=== PATIENT | female | born 1985 | race Hispanic/Latino ===

== ENCOUNTER 2019-06-18 13:11 | Emergency (ER) | payer MEDICAID, SELFPAY ==
[2019-06-18] MEDS ORDERED: Acetaminophen 500 MG TAB ONE (13:51)
[2019-06-18 14:32] LABS: #Eosinphils 0.1 thou/uL (0.0-0.7); #Lymphocytes 1.4 thou/uL (1.20-3.40); #Monocytes 0.4 thou/uL (0.11-0.59); #Neutrophils 3.3 thou/uL (1.40-6.50); %Basophils 0.3 % (0.0-1.0); %Eosinophils 2.1 % (0.0-10.0); %Monocytes 7.1 % (0.0-10.0); %Neutrophils 63.5 % (42.0-75.0); Hemoglobin 12.9 g/dL (12.0-16.0); Mean Corpuscular HGB CONC 33.9 g/dL (32.0-36.0); Mean Corpuscular Hemoglobin 30.7 pg (27.0-31.0); Mean Corpuscular Volume 90.4 fL (78.0-98.0); Mean Platelet Volume 8.3 fL (7.4-10.4); Platelet Count 206 thou/uL (130-400); Red Blood Cell (RBC) Count 4.21 mill/uL (4.20-5.40); White Blood Cell (WBC) Count 5.1 thou/uL (4.8-10.8)
--- NOTE | 2019-06-18 15:03 | ULT ---
Exam: Transabdominal and endovaginal pelvic ultrasound HISTORY:Positive test. Bleeding. COMPARISON: None TECHNIQUE: Transabdominal and endovaginal imaging of the pelvis is performed. Ovaries are interrogate d with grayscale, color flow, Doppler imaging and spectral wave form analysis FINDINGS: Uterus: No myometrial masses. Uterus measurin.9 x 10.3 x 7.1 cm. Endometrium: Within the endometrium, there is a gestational sac, yolk sac and pole. Ceres-rump length is 0.45 cm corresponding to gestational age of 6 weeks 1 day. No subchorionic hemorrhage heart tones: 116 bpm . Incidental nabothian cyst Free fluid: None Right ovary: Normal echotexture. 1.1 x 0.9 x 0.9 cm hypoechoic focus may represent a complex cyst lloyd lori an involuting corpus luteal cyst. Right ovary measurement: 3.5 x 2.4 x 2.4 cm Left ovary: Normal echotexture Left ovary measurements: 1.7 x 1.6 x 2.2 cm Ovarian Doppler: There is vascular flow to the left and right ovary. IMPRESSION: Single intrauterine gestation with heart tones. Gestational age by crown-rump lengt h is 6 weeks and 1 day.
[2019-06-18 15:25] LABS: Bacteria/HPF None Seen HPF (None Seen); Bilirubin Negative (Negative); Blood, Urine 2+ (Negative); Clarity Clear (Clear); Glucose, Urine (Dipstick) Normal (Negative); Leukocyte Negative Leu/uL (Negative); Nitrite Negative (Negative); Protein, Urine (Dipstick) Negative (Neg-Trace); RBC/HPF 0-3 HPF (0-3); Urobilinogen Normal mg/dL (Less than 2); WBC/HPF 0-3 HPF (0-3)
[2019-06-20 00:36] LABS: Chlamydia by PCR Not Detected (NotDetected); GC by PCR Not Detected (NotDetected)
== END 2019-06-18 15:55 | disposition home or self-care (01) ==
LOC: ERS 13:11
DX: O20.0 Threatened abortion (principal); Z3A.01 Less than 8 weeks gestation of pregnancy
CPT/HCPCS: 36415; 76856; 81003; 81015; 84702; 85025; 86900; 86901; 87480; 87491; 87510; 87591; 87660

== ENCOUNTER 2019-11-02 07:57 | Outpatient (CLI) | payer OTHER ==
--- NOTE | 2019-11-03 09:02 | ULT ---
OB ULTRASOUND: COMPARISON: 09/21/2019. HISTORY: Prominent left and right renal pelvis. TECHNIQUE: Sagittal and transverse imaging of the gravid uterus is performed. FINDINGS: Single intrauterine gestation, breech presentation. Cervical length is 4.60 cm. heart tones: 143 bpm. Posterior placenta. No previa. biometry: BPD 6.18 cm, 25 weeks 1 day Head circumference 22.77 cm, 24 weeks 6 days Abdominal circumference 20.58 cm, 25 weeks 2 days Femur length 4.41 cm, 24 weeks 4 days Average age by sonography is 25 weeks 0 days. Estimated weight is 746 g. survey: The following structures are visualized and are appropriate: 3-vessel cord, cord insertion, 4-chamber heart, feet, bladder, nose and lips. There is persistent dilatation of the left and right renal pelvis demonstrated on both the short axis and longitudinal dimension. Right renal pelvis measures 0. 5 cm. Left renal pelvis measures 1.1 cm. Amniotic fluid index 17.5. IMPRESSION: 1. Single intrauterine gestation with heart tones. Gestational age by sonography is 25 weeks 0 days. 2. Cervical length appears to be 4.6 cm. 3. Amniotic fluid index is 17.5 cm. 4. Persistent dilatation of the left right renal pelvis. Continued surveillance as warranted. Transcribed Date/Time: 11/03/2019 9:24 AM
== END 2019-11-02 07:58 | disposition home or self-care (01) ==
LOC: BICULT 07:57
PROVIDERS: ATTEND Family Medicine
DX: O09.892 Supervision of other high risk pregnancies, second trimester (principal); Z3A.25 25 weeks gestation of pregnancy
CPT/HCPCS: 76816

== ENCOUNTER 2021-05-05 23:12 | Inpatient (IN) | payer SELFPAY ==
[~2021-05-05 23:12] MED LIST: Iopamidol-370 76% 500 ML 1 ML ONE
[2021-05-05 23:56] LABS: #Basophils 0.1 thou/uL (0.0-0.2); #Eosinphils 0.1 thou/uL (0.0-0.7); #Lymphocytes 0.9 thou/uL (1.20-3.40); #Monocytes 0.3 thou/uL (0.11-0.59); #Neutrophils 1.7 thou/uL (1.40-6.50); %Basophils 1.7 % (0.0-1.0); %Lymphocytes 30.5 % (21.0-51.0); %Monocytes 8.8 % (0.0-10.0); Hemoglobin 13.2 g/dL (12.0-16.0); Mean Corpuscular HGB CONC 34.5 g/dL (32.0-36.0); Mean Corpuscular Hemoglobin 31.5 pg (27.0-31.0); Mean Corpuscular Volume 91.4 fL (78.0-98.0); Mean Platelet Volume 7.6 fL (7.4-10.4); Platelet Count 302 thou/uL (130-400); RBC Distribution Width 11.9 % (11.5-14.5); Red Blood Cell (RBC) Count 4.19 mill/uL (4.20-5.40)
[2021-05-06 00:03] LABS: BHCG - Serum Negative (NEGATIVE); Pregs Control Background? CLEAR/WHITE (CLR/WHITE); Pregs Control Bar Appear? YES (CONTROL BAR)
[2021-05-06] MEDS ORDERED: Dexamethasone 10 MG/ML VIAL ONE (00:10)
[2021-05-06 00:18] LABS: ALT (SGPT) 56 U/L (8-55); AST (SGOT) 45 U/L (5-34); Albumin 3.5 g/dL (3.5-5.0); Alkaline Phosphatase 75 U/L (40-110); Anion Gap 14 mmol/L (10-20); BUN (Urea Nitrogen) 5 mg/dL (7.0-18.7); Bilirubin, Total 0.3 mg/dL (0.2-1.2); Calc. Creatinine Clearance 0 mL/min (70-130); Calcium 8.4 mg/dL (7.8-10.44); Carbon Dioxide 24 mmol/L (22-29); Chloride 108 mmol/L (98-107); Globulin 3.3 g/dL (2.4-3.5); Glucose 125 mg/dL (70-105); Potassium 4.3 mmol/L (3.5-5.1); Protein, Total 6.8 g/dL (6.0-8.3); Sodium 142 mmol/L (136-145)
[2021-05-06 05:31] VITALS: BMI 30.7
[2021-05-06] MEDS ORDERED: HYDROcodone/Acetaminophen 7.5/325 mg Tablet PO PRN (05:55)
[2021-05-06] MEDS ORDERED: Benzonatate 100 MG CAP PO PRN (05:57)
[2021-05-06] MEDS ORDERED: hydrALAZINE 20 MG/ML VIAL SLOW IVP PRN (05:57)
[2021-05-06] MEDS ORDERED: guaiFENesin ER 600 MG TAB PO SCH (06:15)
[2021-05-06] MEDS: Famotidine 20 MG TAB PO SCH ×2 (08:14→19:56)
[2021-05-06] MEDS: Zinc Sulfate 220 MG CAP PO SCH (08:14)
[2021-05-06] MEDS: Dexamethasone 10 MG in Sodium Chloride 0.9% 50 ML IVPB SCH (08:21)
[2021-05-06] MEDS ORDERED: Senokot S 8.6-50 MG TAB PO PRN (08:40)
[2021-05-06] MEDS ORDERED: Albuterol 200 PUFF (6.7GM INHALER) INH PRN (08:49)
[2021-05-06] MEDS: Ascorbic Acid 500 mg Chewable Tablet PO SCH (09:13)
[2021-05-06] MEDS: Cholecalciferol 1,000 UNITS (25 MCG) TAB PO SCH (09:14)
[2021-05-06] MEDS: Multivit, Therapeutic 1 TAB PO SCH (09:14)
[2021-05-06] MEDS: Enoxaparin Sodium 40 MG/0.4 ML SYRINGE SC SCH (10:13)
[2021-05-06] MEDS: Albuterol 200 PUFF (6.7GM INHALER) INH SCH ×4 (10:18→19:56)
[2021-05-06] MEDS ORDERED: REMDESIVIR 200 MG in Sodium Chloride 0.9% 250 ML 210 ML IV SCH (11:00)
[2021-05-06] MEDS: guaiFENesin ER 600 MG TAB PO SCH (19:57)
[2021-05-06] MEDS: Acetaminophen 325 MG TAB PO PRN (20:02)
[2021-05-06] MEDS: Melatonin 3 MG TAB PO PRN (21:28)
[2021-05-07 06:31] LABS: Hemoglobin 13.2 g/dL (12.0-16.0); Mean Corpuscular HGB CONC 33.6 g/dL (32.0-36.0); Mean Corpuscular Hemoglobin 30.2 pg (27.0-31.0); Mean Corpuscular Volume 89.8 fL (78.0-98.0); Mean Platelet Volume 7.2 fL (7.4-10.4); Platelet Count 393 thou/uL (130-400); RBC Distribution Width 11.8 % (11.5-14.5); Red Blood Cell (RBC) Count 4.39 mill/uL (4.20-5.40); White Blood Cell (WBC) Count 5.8 thou/uL (4.8-10.8)
[2021-05-07] MEDS: Albuterol 200 PUFF (6.7GM INHALER) INH SCH ×4 (06:34→18:28)
[2021-05-07 06:50] LABS: ALT (SGPT) 57 U/L (8-55); AST (SGOT) 27 U/L (5-34); Albumin 3.4 g/dL (3.5-5.0); Alkaline Phosphatase 67 U/L (40-110); Anion Gap 12 mmol/L (10-20); BUN (Urea Nitrogen) 11 mg/dL (7.0-18.7); Bilirubin, Total 0.3 mg/dL (0.2-1.2); Calc. Creatinine Clearance 139 mL/min (70-130); Calcium 8.4 mg/dL (7.8-10.44); Carbon Dioxide 25 mmol/L (22-29); Chloride 106 mmol/L (98-107); Globulin 2.7 g/dL (2.4-3.5); Glucose 132 mg/dL (70-105); Magnesium 2.2 mg/dL (1.6-2.6); Potassium 4.2 mmol/L (3.5-5.1); Protein, Total 6.1 g/dL (6.0-8.3); Sodium 139 mmol/L (136-145)
[2021-05-07 06:51] LABS: Band 7 % (5-11); Lymphocytes 12 % (21-51); MDiff Complete? YES; Monocytes 4 % (0-10); Neutrophil 77 % (42-75)
[2021-05-07] MEDS: Dexamethasone 10 MG in Sodium Chloride 0.9% 50 ML IVPB SCH (08:27)
[2021-05-07] MEDS: Cholecalciferol 1,000 UNITS (25 MCG) TAB PO SCH (08:28)
[2021-05-07] MEDS: Zinc Sulfate 220 MG CAP PO SCH (08:28)
[2021-05-07] MEDS: Famotidine 20 MG TAB PO SCH ×2 (08:29→20:07)
[2021-05-07] MEDS: Ascorbic Acid 500 mg Chewable Tablet PO SCH (08:29)
[2021-05-07] MEDS: Aspirin 81 mg Enteric Coated Tablet PO SCH (08:29)
[2021-05-07] MEDS: guaiFENesin ER 600 MG TAB PO SCH ×2 (08:29→20:07)
[2021-05-07] MEDS: Multivit, Therapeutic 1 TAB PO SCH (08:29)
[2021-05-07] MEDS: Enoxaparin Sodium 40 MG/0.4 ML SYRINGE SC SCH (08:30)
[2021-05-07] MEDS: REMDESIVIR 100 MG in Sodium Chloride 0.9% 250 ML 230 ML IV SCH (09:24)
[2021-05-07] MEDS: Melatonin 3 MG TAB PO PRN (20:08)
[2021-05-07] MEDS: Acetaminophen 325 MG TAB PO PRN (20:08)
[2021-05-08] MEDS: Albuterol 200 PUFF (6.7GM INHALER) INH SCH ×4 (06:33→18:37)
[2021-05-08] MEDS: Aspirin 81 mg Enteric Coated Tablet PO SCH (08:19)
[2021-05-08] MEDS: Ascorbic Acid 500 mg Chewable Tablet PO SCH (08:19)
[2021-05-08] MEDS: Famotidine 20 MG TAB PO SCH ×2 (08:19→20:01)
[2021-05-08] MEDS: Cholecalciferol 1,000 UNITS (25 MCG) TAB PO SCH (08:19)
[2021-05-08 08:20] LABS: #Lymphocytes 1.3 thou/uL (1.20-3.40); #Monocytes 0.5 thou/uL (0.11-0.59); #Neutrophils 3.2 thou/uL (1.40-6.50); %Eosinophils 0.3 % (0.0-10.0); %Lymphocytes 26.1 % (21.0-51.0); %Monocytes 9.8 % (0.0-10.0); %Neutrophils 63.9 % (42.0-75.0); Hemoglobin 13.4 g/dL (12.0-16.0); Mean Corpuscular HGB CONC 32.7 g/dL (32.0-36.0); Mean Corpuscular Hemoglobin 29.7 pg (27.0-31.0); Mean Platelet Volume 7.3 fL (7.4-10.4); Platelet Count 457 thou/uL (130-400); RBC Distribution Width 11.8 % (11.5-14.5); Red Blood Cell (RBC) Count 4.51 mill/uL (4.20-5.40)
[2021-05-08] MEDS: guaiFENesin ER 600 MG TAB PO SCH ×2 (08:20→20:02)
[2021-05-08] MEDS: Multivit, Therapeutic 1 TAB PO SCH (08:20)
[2021-05-08] MEDS: Dexamethasone 10 MG in Sodium Chloride 0.9% 50 ML IVPB SCH (08:20)
[2021-05-08] MEDS: Zinc Sulfate 220 MG CAP PO SCH (08:20)
[2021-05-08 08:42] LABS: Anion Gap 12 mmol/L (10-20); BUN (Urea Nitrogen) 17 mg/dL (7.0-18.7); CRP (Inflammatory) 1.29 mg/dL (= or < 0.5); Calc. Creatinine Clearance 144 mL/min (70-130); Carbon Dioxide 26 mmol/L (22-29); Chloride 104 mmol/L (98-107); Glucose 92 mg/dL (70-105); Potassium 4.3 mmol/L (3.5-5.1); Sodium 138 mmol/L (136-145)
[2021-05-08] MEDS: Enoxaparin Sodium 40 MG/0.4 ML SYRINGE SC SCH (08:53)
[2021-05-08] MEDS: REMDESIVIR 100 MG in Sodium Chloride 0.9% 250 ML 230 ML IV SCH (08:54)
[2021-05-08] MEDS: Acetaminophen 325 MG TAB PO PRN (20:02)
[2021-05-08] MEDS: Melatonin 3 MG TAB PO PRN (20:03)
[2021-05-09] MEDS: Albuterol 200 PUFF (6.7GM INHALER) INH SCH ×4 (06:14→18:19)
[2021-05-09] MEDS: Dexamethasone 4 mg/ml Vial SLOW IVP SCH (07:57)
[2021-05-09] MEDS: guaiFENesin ER 600 MG TAB PO SCH ×2 (07:59→20:24)
[2021-05-09] MEDS: Ascorbic Acid 500 mg Chewable Tablet PO SCH (07:59)
[2021-05-09] MEDS: Cholecalciferol 1,000 UNITS (25 MCG) TAB PO SCH (07:59)
[2021-05-09] MEDS: Multivit, Therapeutic 1 TAB PO SCH (07:59)
[2021-05-09] MEDS: Aspirin 81 mg Enteric Coated Tablet PO SCH (07:59)
[2021-05-09] MEDS: Enoxaparin Sodium 40 MG/0.4 ML SYRINGE SC SCH (08:00)
[2021-05-09] MEDS: REMDESIVIR 100 MG in Sodium Chloride 0.9% 250 ML 230 ML IV SCH (08:00)
[2021-05-09] MEDS: Famotidine 20 MG TAB PO SCH ×2 (08:00→20:24)
[2021-05-09] MEDS: Zinc Sulfate 220 MG CAP PO SCH (08:00)
[2021-05-10 04:34] VITALS: TEMP 98.2
[2021-05-10 06:31] LABS: #Lymphocytes 1.5 thou/uL (1.20-3.40); #Monocytes 0.7 thou/uL (0.11-0.59); #Neutrophils 4.3 thou/uL (1.40-6.50); %Basophils 0.3 % (0.0-1.0); %Eosinophils 0.4 % (0.0-10.0); %Monocytes 10.2 % (0.0-10.0); %Neutrophils 66.1 % (42.0-75.0); Hemoglobin 13.9 g/dL (12.0-16.0); Mean Corpuscular HGB CONC 32.7 g/dL (32.0-36.0); Mean Corpuscular Hemoglobin 29.6 pg (27.0-31.0); Mean Corpuscular Volume 90.7 fL (78.0-98.0); Platelet Count 527 thou/uL (130-400); RBC Distribution Width 11.8 % (11.5-14.5); Red Blood Cell (RBC) Count 4.68 mill/uL (4.20-5.40); White Blood Cell (WBC) Count 6.5 thou/uL (4.8-10.8)
[2021-05-10 07:02] LABS: ALT (SGPT) 97 U/L (8-55); AST (SGOT) 25 U/L (5-34); Albumin 3.3 g/dL (3.5-5.0); Alkaline Phosphatase 73 U/L (40-110); Anion Gap 13 mmol/L (10-20); BUN (Urea Nitrogen) 16 mg/dL (7.0-18.7); Bilirubin, Total 0.2 mg/dL (0.2-1.2); CRP (Inflammatory) Less than 0.50 mg/dL (= or < 0.5); Calc. Creatinine Clearance 137 mL/min (70-130); Calcium 8.4 mg/dL (7.8-10.44); Carbon Dioxide 25 mmol/L (22-29); Chloride 105 mmol/L (98-107); Globulin 2.6 g/dL (2.4-3.5); Glucose 103 mg/dL (70-105); Potassium 4.3 mmol/L (3.5-5.1); Protein, Total 5.9 g/dL (6.0-8.3); Sodium 139 mmol/L (136-145)
[2021-05-10 07:40] VITALS: BP 107/70
[2021-05-10] MEDS: Albuterol 200 PUFF (6.7GM INHALER) INH SCH (09:07)
[2021-05-10] MEDS: Dexamethasone 4 mg/ml Vial SLOW IVP SCH (09:07)
[2021-05-10] MEDS: Enoxaparin Sodium 40 MG/0.4 ML SYRINGE SC SCH (09:08)
[2021-05-10] MEDS: Ascorbic Acid 500 mg Chewable Tablet PO SCH (09:08)
[2021-05-10] MEDS: Famotidine 20 MG TAB PO SCH (09:09)
[2021-05-10] MEDS: Aspirin 81 mg Enteric Coated Tablet PO SCH (09:09)
[2021-05-10] MEDS: Cholecalciferol 1,000 UNITS (25 MCG) TAB PO SCH (09:09)
[2021-05-10] MEDS: REMDESIVIR 100 MG in Sodium Chloride 0.9% 250 ML 230 ML IV SCH (09:10)
[2021-05-10] MEDS: Zinc Sulfate 220 MG CAP PO SCH (09:10)
[2021-05-10] MEDS: Multivit, Therapeutic 1 TAB PO SCH (09:10)
[2021-05-10] MEDS: guaiFENesin ER 600 MG TAB PO SCH (09:26)
== END 2021-05-10 12:25 | disposition home or self-care (01) | DRG 871 ==
LOC: ERS 23:12 → T4-B 05-06 03:08
PROVIDERS: ADMIT Internal Medicine; ATTEND Internal Medicine
PROC: XW033E5 Introduction of Remdesivir Anti-infective into Peripheral Vein, Percutaneous Approach, New Technology Group 5 (ICD-10-PCS; principal; 2021-05-06)
PROC: 3E0333Z Introduction of Anti-inflammatory into Peripheral Vein, Percutaneous Approach (ICD-10-PCS; 2021-05-06)
PROC: 8E0ZXY6 Isolation (ICD-10-PCS; 2021-05-06)
DX: A41.89 Other specified sepsis (principal); U07.1 COVID-19; J12.82 Pneumonia due to coronavirus disease 2019; J96.01 Acute respiratory failure with hypoxia; R65.20 Severe sepsis without septic shock; R94.5 Abnormal results of liver function studies; E66.9 Obesity, unspecified; Z68.30 Body mass index [BMI] 30.0-30.9, adult; Z90.49 Acquired absence of other specified parts of digestive tract
CPT/HCPCS: 36415; 71275; 80048; 80053; 83735; 84703; 85007; 85025; 85027; 86140; 93005; 96374; J1100; J1650; J7050; Q9967